=== PATIENT | male | born 1955 | race Caucasian/White ===

== ENCOUNTER → 2020-08-26 08:29 | Outpatient (BNVA) | payer MEDICAID, SELFPAY | PROVIDERS: PCP Internal Medicine; Referring Provider Internal Medicine; Visit Provider Internal Medicine Cardiovascular Disease | DX: R07.89 Other chest pain (principal); I25.10 Atherosclerotic heart disease of native coronary artery without angina pectoris; I10 Essential (primary) hypertension | CPT/HCPCS: 99202 ==

== ENCOUNTER → 2020-09-08 09:07 | Outpatient (REF) | payer MEDICAID, SELFPAY ==
--- NOTE | 2020-09-08 09:11 | CA_ITS ---
Acquisition Time: 2020-09-08 09:14:08 Total Exercise Time: 00:05:00 Test Indications: Chest Pain Medications: ASA ATORVASTATIN HYDRALAZINE HCTZ LABETALOL LOSARTAN METFORMIN PANTOPRAZOLE Protocol: ESPINOZA Max HR: 162 BPM 103% of Pred: 157 BPM Max BP: 150/070 mmHG Max Work Load: 7.0 METS Exercise stress test with exercise 5 min of Espinoza protocol, with mild sob, no chest discomfort, with isolated PACs and PVCs, with normotensive response to exercise, without EKG changes meeting criteria for ischemia. Nuclear images pending. Test reviewed [facility] Dr [facility]. Referred By: Matthew Molina Overread By: EDI BRENNAN
== END | disposition home or self-care (01) ==
LOC: HO.CARD 09:07
PROVIDERS: PCP Internal Medicine; Visit Provider Internal Medicine Cardiovascular Disease
DX: R07.89 Other chest pain (principal)
CPT/HCPCS: 78452; 93017; A9500

== ENCOUNTER → 2020-09-18 09:02 | Outpatient (BNVA) | payer MEDICAID, SELFPAY | PROVIDERS: PCP Internal Medicine; Visit Provider Internal Medicine Cardiovascular Disease ==

== ENCOUNTER 2020-12-11 09:00 | Outpatient (RCR) | payer MEDICAID, SELFPAY ==
--- NOTE | 2020-10-06 13:42 | MHC.SP.ADU ---
Referring provider: Samir Banegas MD Reason for Referral: Aphasia and dysarthria Type of Treatment: 81084 Evaluation Speech Sound Production WITH Language Date of Plan of Treatment: 09/30/20 Onset of Symptoms/Illness: 07/01/20 Date Treatment Started: 09/30/20 Medical Diagnosis: CVA earlier this year, allergic rhinitis, hepatitis B, CAD, hypertension, hypercholesterolemia, osteoarthritis, diabetes mellitus, history cardiac cath, stented coronary artery Primary Speech Language Diagnosis: R47.01 Aphasia Secondary Speech Language Diagnosis: R47.1 Dysarthria History Mr. Pitts is a 65 year old man who was referred for a speech evaluation by Dr. Samir Banegas due to concerns surrounding residual speech deficits after having a CVA earlier this year. Patient attended this evaluation unaccompanied. Patient reports ?stammering? on words and forgetting words. Patient was visibly upset when describing his difficulties and when exhibiting difficulty finding words throughout the evaluation, at times being brought to tears. Patient also reports difficulty swallowing since his stroke, which he reports was 3 months ago. He reports difficulty eating solid food. He stated that it takes him ?2 hours to drink a cup of coffee,? he must avoid hard solids, and he ?cannot swallow quickly.? Patient denies pain swallowing. Patient is Danish-speaking. This evaluation was conducted in Danish by a bilingual speech-language pathologist who speaks Danish. Medical History: Other: CVA earlier this year, allergic rhinitis, hepatitis B, CAD, hypertension, hypercholesterolemia, osteoarthritis, diabetes mellitus, history cardiac cath, stented coronary artery Recent Hospitalizations: Yes: CVA 2020 Swallowing History: Dysphagia Specific: Risk of Aspiration Oralpharyngeal Dysphagia Comments: Patient reports oropharyngeal dysphagia. Patient denies pain when swallowing, but reports he is not able to swallow quickly. Patient reports it takes [him] 2 hours to finish [his] coffee and that he avoids hard foods. Recommend MBSS given history of CVA and patient's reports of dysphagia. Reported Speech, Language, Cognition difficulties: Understanding Speaking Swallowing Comments: Patient reports dysphagia. Patient presents with moderate dysarthria and moderate receptive-expressive nonfluent aphasia. Assessment Speech Production: Aphasic: Nonfluent Dysarthric Garbled Nonfluent Slow Slurred Clinical Impression: Impaired Observations: Patient presents with moderate dysarthria. Noted slowed rate of speech and slurred/garbled speech quality. Some disfluency as a result of word finding difficulty. Patient reports that at times, others exhibit difficulty understanding him. Informal Voice Assessment: Voice Loudness: Normal Voice Nasal Resonance: Normal Voice Oral Resonance: Normal Voice Phonatory-based Quality: Normal Voice Pitch: Normal Clinical Impression: Intact Clinicial Observations: Vocal quality perceptually judged to be WFL based on patient's age and gender. Tests of Speech & Lang Adults: Clinical Impression: Impaired Observations: Patient was administered the Bilingual Danish [place] Expressive One Word Picture Vocabulary Test (EOWPVT-BSE). The EOWPVT-4 assesses an individual?s use of vocabulary to label objects, actions or concepts by name. Patient was administered the bilingual version of this assessment, in which responses in [place]utanese or Danish were both considered valid. Patient responded exclusively in Danish. His raw score of 108 correlates to a standard score of 76 and percentile rank 5%. These scores indicate impaired expressive vocabulary skills compared to age matched, bilingual peers. Patient demonstrated moderate word finding difficulty. Noted some semantic paraphasias. For example, patient named apio (celery) as roddy (lettuce); galaxia (galaxy) as tornado. Other times, after a delay, patient did not respond and stated, ?I don?t have the word.? Patient was observed to describe some words. He described origami as ?juguete de papel? (paper toy) and appliances ?est?n en la casa? (They are in the house). RECEPTIVE LANGUAGE: -Patient was able to follow simple, one step directions presented verbally without difficulty. -Patient exhibited difficulty following complex multistep directions which were presented verbally and in written form. -Patient matched pictures to sentences (sentence comprehension) without difficulty. -Patient identified items in an image by their name (i.e. ?Find the couch?) and by their function (i.e. ?Find what you sit in?). -Patient was provided with a short paragraph which was presented verbally and with written material. Patient was to answer yes/no questions. However, patient looked at the questions and stated, ?I can?t.? This activity was frustrating for patient. EXPRESSIVE: -Patient completed cloze phrases with opposite words in 10 out of 10 trials. -Patient completed category word lists in 2 out of 12 trials. Patient generated labels for category lists, but exhibited difficulty generating category members to complete the list. -Patient named items by their function in 9/10 trials (responsive naming). -Patient appropriately answered WH questions. Patient presents with moderate nonfluent receptive-expressive aphasia. Tests of Cognition: Clinical Impression: Did Not Test Observations: Due to time constraints, we did not test cognitive linguistic skills during this evaluation. Patient may benefit from further testing to obtain a baseline. Impressions and Recommendations Summary: Patient demonstrates moderate dysarthria and moderate receptive-expressive nonfluent aphasia. Patient is recommended modified barium swallow study (MBSS) due to reports of dysphagia and prior history of CVA. Patient is recommended 12 weekly speech therapy sessions to further test cognitive linguistic skills, improve overall speech clarity, and practice compensatory strategies for improved word recall. Impact on Daily Function/Activity Limitations: Daily Activities: Moderate Interpersonal Interactions: Moderate Education: None Employment: None Community: Moderate Prognosis for Improvement: Fair Recommendation for Speech Therapy: Outpatient Speech Therapy Modified Barium Swallow Study - Outpatient Frequency/Duration: 1x weekly x 12 weeks Time to Reassess: 3 months Longterm Goals: Short Term Goals: Goal # : 1.) Patient will utilize Semantic Feature cues to describe items to a listener successfully in 80% of opportunities. Goal Status: New Goal Goal# : 2.) Patient will name 3-5 members for a given category in 80% of trials when provided with minimal assistance. Goal Status: New Goal Goal # : 3.) Patient will use circumlocution, gestures, and writing to facilitate word retrieval and listener understanding when exhibiting word recall difficulty during conversation when provided with minimal cueing in 4 out of 5 opportunities across 3 sessions. Goal Status: New Goal Goal # : 4.) Patient will utilize compensatory strategies for improved speech clarity (i.e. pacing cues, segmentation of syllables, slowing rate of speech, overarticulation) in 4 out of 5 opportunities when provided with minimal verbal reminders. Goal Status: New Goal Recommended Referrals to be Discussed with Primary Care Provider: Neurology Patient Education: Completed: Yes Patient/Caregiver Education: Described Results of Evaluation Patient expressed understanding of evaluation Patient agrees with goals and treatment plan Phlebotomy Program Coordinator Clinican/Clinical Fellow: No Supervisory Statement: N/A Speech Language Pathologist: Li Hwang M.A., CCC-BASEBOARD HEATING INSTALLER
== END 2021-01-18 13:02 | disposition other institution (70) ==
LOC: HO.SH 09:00
PROVIDERS: Visit Provider Internal Medicine
DX: R47.01 Aphasia (principal); R47.1 Dysarthria and anarthria
CPT/HCPCS: 92507; 92523